=== PATIENT | female | born 2005 | race African-American/Black ===

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

== ENCOUNTER 2025-01-02 15:24 | Emergency (ER) | payer MEDICAID, SELFPAY ==
[~2025-01-02] VITALS: Ht 162.6 cm; Wt 51.9 kg
[~2025-01-02 15:24] MED LIST: NITR-87 PO; PERCOT PO
[2025-01-02 15:26] VITALS: BP 147/98; PULSE 117; RESP 16; TEMP 97.2; O2SAT 100
== END 2025-01-02 17:48 | disposition left against medical advice (07) ==
LOC: ER 15:24
DX: S01.411A Laceration without foreign body of right cheek and temporomandibular area, initial encounter (principal); Z53.21 Procedure and treatment not carried out due to patient leaving prior to being seen by health care provider; Y08.89XA Assault by other specified means, initial encounter; Y93.89 Activity, other specified; Y92.89 Other specified places as the place of occurrence of the external cause; Y99.8 Other external cause status

== ENCOUNTER 2025-03-08 17:17 | Emergency (ER) | payer SELFPAY ==
[~2025-03-08] VITALS: Ht 160 cm; Wt 53.2 kg
[2025-03-08 17:19] VITALS: BP 132/68; PULSE 90; RESP 20; TEMP 97.8; O2SAT 98
[2025-03-08 18:24] LABS: Hematocrit 39.3 % (36.0-46.0); Hemoglobin 13.3 g/dL (12.2-16.2); Mean Corpuscular Hemoglobin 29.3 pg (28.0-32.0); Mean Corpuscular Volume 86.5 fL (80.0-100.0); Nucleated Red Blood Cells % 0.1 %
--- NOTE | 2025-03-08 18:32 | ED.PDOC ---
GI ASSESSMENT HPI Comments 20 y/o F presents with c/c of LUQ and periumbilical abdominal pain since 03/04/25. Pain is sharp and intermittent. No previous history of pain in the past. Patient was referred to ED after going to and being evaluated at urgent care to r/o UTI. She states on testing negative for UTI. Denies being , currently. Denies any nausea, vomiting, fever, or further acute symptoms. Past medical history: denies Past surgical history: denies HPI: Poor Historian. Denies any nausea or vomiting or diarrhea. Denies any urinary symptoms. Denies any . Denies any history of STDs. Symptoms are intermittent nonspecific no particular alleviating or precipitating factors. TRICIA: LUQ UMBILICAL PAIN. NORMAL EXAM OTHERWISE. REVIEW OF SYSTEMS: CONSTITUTIONAL: Denies acute: fever, diaphoresis, chills, generalized weakness. HEAD: Denies acute: headache, photophobia Eyes: Denies acute: Double vision, vision loss, eye pain, eye discharge. EARS: Denies acute: tinnitus, hearing loss, ear discharge, ear pain, THROAT: Denies acute: sore throat, swelling, difficulty swallowing , pain with swallowing, change in voice. NECK: Denies acute: neck pain, neck swelling, stiff neck. HEART: Denies acute : chest pain, palpitations, LUNGS: Denies acute: SOB, wheezing, cough, hemoptysis ABDOMEN: Denies acute: Nausea, Vomiting, diarrhea, melena , hematemesis, hematochezia SKIN: Denies acute: rash, redness, lesions, itchiness. EXTREMITIES: Denies acute: calf pain, numbness, tingling, weakness, denies pain in extremity. Denies acute: Low back pain. Neuro: Denies acute: focal neurological deficit, motor or sensory focal neurological deficit, tremors, seizure like activity, confusion, dizziness, change in mental status, loss of bowel or bladder function, cauda equina like symptoms. : Denies acute: dysuria, hematuria, flank pain, increase in urinary frequency. PSYCH: Denies acute: hallucination, suicidal ideation, homicidal ideation. FEMALE: Denies acute: abnormal vaginal bleeding, foul odor, unusual discharge. PHYSICAL EXAM: General: ----no----acute distress, awake and alert. Head: normocephalic, atraumatic. No raccoon's eyes, no arellano sign. Neck: supple, trachea is midline, no swelling. Throat: Normal phonation. Eyes:, no erythema, no purulent discharge, no proptosis, no icterus. Heart: regular rate, regular rhythm, no significant murmur appreciated. Lungs: no apparent respiratory distress, Able to speak in full sentences. No wheezing, no rhonchi, no crackles. No stridors Clear to auscultation bilaterally. Abdomen: Left upper quadrant and umbilical tender to palpation, non distended, soft, no guarding, no rebound, + bowel sounds. Neuro: Awake, Alert, oriented to name, self, situation, follows commands GCS=15. Speech is normal. Skin: no petechia, no purpura, no cyanosis, non-pale, not jaundice. Lower extremities: --no - Pitting edema no deformity, no focal swelling, no calf TTP. Makes eye contact. moves all four extremities. Face: no apparent facial droop. Ambulating in the ED independently. ED COURSE: DISCLAIMER: This medical document was created using an electronic medical record system with voice recognition software and computerized dictation system. Although this document has been carefully reviewed, there might still be some phonetic and typographical errors. Occasional wrong-word or "sound-alike" substitutions may have occurred due to the inherent limitations of voice recognition software. These areas are purely typographical due to imperfections of the software programs and do not reflect any compromise in the patient's medical care. Please read the chart carefully and recognize, using context, where these substitutions have occurred. Chief Complaint: Abdominal Pain Time Seen by MD: 18:20 Reviewed Notes: Allergies Allergies: Coded Allergies: NO KNOWN ALLERGIES (Unverified , 11/07/22) Home Meds Active Scripts Oxycodone W/ Acetaminophen (Percocet 5/325MG) 1 Tab Tb, 1 TAB PO BID for 4 Days, #8 TAB Prov:RUTH HER MD 11/07/22 Nitrofurantoin Monohydrate Mac (Macrobid) 100 Mg Cap, 100 MG PO BID for 7 Days, #14 CAP Prov:RUTH HER MD 11/07/22 Information Source: Patient Mode of Arrival: Ambulatory Was a procedure done? Was a procedure done?: No GI differential Dx Differential Diagnosis: Other (DDX include Diverticulitis, colitis, gastroenteritis, acute abdomen, SBO, enteritis, constipation, volvulus, appendicitis, Gallbladder disease, choledocolithiasis, ascending cholangitis, pancreatitis, intraAbdominal mass/neoplasm, hepatitis, UTI, pylonephritis, kidney stone, aneurysm, dissection, Inflammatory bowel disease, gastroparesis, ischemic bowel,,,,,,Food poisoning, bacterial/parasitic/viral etiology, trauma, diabetes DKA,ovarian torsion, ovarian cyst/mass, tubo-ovarian abscess, , ectopic , PID, STD.) X-Ray, Labs, Meds, VS Vital Signs Date Time Temp Pulse Resp B/P (MAP) Pulse Ox O2 Delivery O2 Flow Rate FiO2 03/08/25 17:19 97.8 90 20 132/68 98 97.8 Lab Test 03/08/25 18:38 03/08/25 18:14 Range/Units Urine Color Yellow Yellow Urine Clarity Clear Clear Urine pH 6.0 5.0-9.0 Urine Specific Joaquin 1.031 1.001-1.035 Urine Protein Trace H Negative Urine Ketones Trace Negative Urine Blood 3+ H Negative /uL Urine Nitrite Negative Negative Urine Bilirubin Negative Negative Urine Urobilinogen Normal Negative mg/dL Urine Leukocyte Esterase Negative Negative /uL Urine RBC 289 0 - 4 /hpf Urine Microscopic WBC < 1 0-5 /HPF Urine Squamous Epithelial Cells Few <5 /hpf Urine Bacteria None seen None Seen /hpf Urine Hyaline Casts Few 0 - 2 /lpf Urine Mucus Moderate None Seen Urine Glucose Normal Normal mg/dL Urine Test Negative Negative White Blood Count 3.1 L 4.4-10.8 10^3/uL Red Blood Count 4.54 4.0-5.20 10^6/uL Hemoglobin 13.3 12.2-16.2 g/dL Hematocrit 39.3 36.0-46.0 % Mean Corpuscular Volume 86.5 80.0-100.0 fL Mean Corpuscular Hemoglobin 29.3 28.0-32.0 pg Mean Corpuscular Hemoglobin Concent 33.8 32.0-36.0 g/dL Red Cell Distribution Width 13.0 11.8-14.3 % Platelet Count 344 140-450 10^3/uL Mean Platelet Volume 7.5 6.9-10.8 fL Neutrophils (%) (Auto) 44.9 37.0-80.0 % Lymphocytes (%) (Auto) 42.6 10.0-50.0 % Monocytes (%) (Auto) 10.4 0.0-12.0 % Eosinophils (%) (Auto) 0.9 0.0-7.0 % Basophils (%) (Auto) 1.2 0.0-2.0 % Neutrophils # (Auto) 1.4 L 1.6-8.6 10 ^3/uL Lymphocytes # (Auto) 1.3 0.4-5.4 10 ^3/uL Monocytes # (Auto) 0.3 0-1.3 10 ^3/uL Eosinophils # (Auto) 0 0-0.8 10 ^3/uL Basophils # (Auto) 0 0-0.2 10 ^3/uL Nucleated Red Blood Cells 0.1 % Sodium Level 140 136-145 mmol/L Potassium Level 3.7 3.5-5.1 mmol/L Chloride Level 104 98-107 mmol/L Carbon Dioxide Level 26 20-31 mmol/L Anion Gap 10 5-15 Blood Urea Nitrogen 6 L 9-23 mg/dL Creatinine 0.73 0.550-1.02 mg/dL Glomerular Filtration Rate Calc 121 >90 mL/min BUN/Creatinine Ratio 8.2 L 10.0-20.0 Serum Glucose 90 74-106 mg/dL Lactic Acid Level 0.8 0.4-2.0 mmol/L Calcium Level 9.5 8.7-10.4 mg/dL Total Bilirubin 0.4 0.2-1.0 mg/dL Aspartate Amino Transferase (AST) 19 13-40 U/L Alanine Aminotransferase (ALT) 15 7-40 U/L Alkaline Phosphatase 73 46-116 U/L Total Protein 7.8 5.7-8.2 g/dL Albumin 4.3 3.2-4.8 g/dL Lipase 23 12-53 U/L [facility] [id number] [place] [id number] Ph: [phone] DIAGNOSTIC IMAGING Diagnostic Imaging Report : [id number] Signed PATIENT: PAVEL CLARKE ACCT: [id number] UNIT: [id number] : 2005 LOC: ER ROOM / BED: / AGE / SEX: 20 / F ADM STATUS: REG ER SERVICE [id number] ORDERING PHYSICIAN: JAYLA MCKENZIE DO PROCEDURE(s): ABPL - CT AB PEL WO CON-NO ORAL OR IV REASON: abd pain ORDER NUMBER(s): [id number], ACCESSION NUMBER(s): [id number] COMPUTERIZED TOMOGRAPHY ABDOMEN AND PELVIS WITHOUT CONTRAST REASON FOR EXAM: abd pain COMPARISON: CT CT AB PEL WO CON-NO ORAL OR IV on DOS: 11/07/22 TECHNIQUE: Spiral scans were acquired from the diaphragm to the symphysis pubis without intravenous contrast administration. 2-D coronal and sagittal reformatted images were provided. Radiation optimization: All CT scans at this facility use at least one of these dose optimization techniques: Automated exposure control mA and/or kV adjustment per patient size (includes targeted exams where dose is matched to clinical indication) or iterative reconstruction. RADIATION DOSE: CTDI: 6 mGy DLP: 268 mGy-cm FINDINGS: The visualized lung bases are clear. There is no pleural effusion. There is no pericardial effusion. The spleen is not enlarged. The liver is normal in size and contour. No calcified gallstone is identified. Evaluation of the abdominal organs is suboptimal in the absence of intravenous contrast. Unenhanced appearance of the pancreas is grossly unremarkable. The adrenal glands appear normal. The kidneys are similar in size. There is no hydronephrosis of either kidney. The urinary bladder is decompressed and is not well evaluated. No renal, ureteral, or bladde r calculus is identified. There is no abdominal aortic aneurysm. The stomach is distended with ingested material. There is no pathologic distention of the small bowel to suggest small bowel obstruction. The uterus and ovaries are grossly unremarkable. There is trace free fluid in the dependent pelvis, likely physiologic. The colonic stool burden is small. The appendix is not definitely seen. There is no pericecal inflammatory change to suggest acute appendicitis. No acute osseous abnormality is identified. IMPRESSION: The appendix is not definitely seen. There is no pericecal inflammatory change to suggest acute appendicitis. If there is clinical concern for acute appendicitis, recommend repeat CT with intravenous and enteric contrast. No evidence of bowel obstruction. Stomach is distended with ingested material. ATED BY: YEISON ROGERS MD DICTATED DATE/TIME: 03/08/252000 SIGNED BY: YEISON ROGERS MD SIGNED DATE/TIME: 03/08/252000 CC: Time of 1ST Reevaluation: 18:20 Reevaluation 1ST: Unchanged Patient Education/Counseling: Diagnosis, Treatment Family Education/Counseling: No Family Present Comments Patient eloped SEPSIS Sepsis Screen Date sepsis recognized/suspect: Mar 08, 2025 Time Sepsis recognized/suspect: 1719 Recent Procedure: No On Antibiotic Therapy: No Respiratory Rate >20: No Heart Rate >90: No Temp<36 C (96.8 F) or >38.3 C: No SBP <90 or MAP <65 mmHG: No New Acute Mental Status Change: No Is the patient on CPAP, BIPAP,: No 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 ) Ct Ab Pel Wo Con-No Oral Or Iv (03/08/25 18:05) Vital Signs Date Time Temp Pulse Resp B/P (MAP) Pulse Ox O2 Delivery O2 Flow Rate FiO2 03/08/25 17:19 97.8 90 20 132/68 98 97.8 Laboratory Tests Test 03/08/25 18:14 Lactic Acid Level 0.8 mmol/L (0.4-2.0) White Blood Count 3.1 10^3/uL (4.4-10.8) L Departure 1 Departure Time of Disposition: 20:23 Impression: Primary Impression: Abdominal pain Additional Impression: Eloped from emergency department Disposition: 07 LEFT AWOL/ELOPED Condition: Stable Additional Instructions: Patient eloped: Additional instructions: Please read all instructions provided in this packet carefully. You MUST follow-up with your primary care/family doctor in 1 to 2 days. If you are unable to see your primary care/family doctor, please return to our emergency room for re-assessment and re-evaluation in 1 to 2 days. Return to the emergency room here in our facility or to the nearest ER [facility] if your symptoms change or worsen. CONSULTATIONS: you MUST Follow-up for consultation as soon as possible with: -gastroenterology in 1-2 days. Please call for appointment. You MUST call the consultants office yourself to make an appointment. You may need to arrange that through your insurance and/or your primary/family doctor. If you are unable to see the presales consultant in 1 to 2 days, you must return to our emergency room (or any other ER of your choice) for re-assessment and re- evaluation. Adequate fluid hydration. Although you have been discharged from the Emergency Department, this does not mean that you have a "clean bill of health". No definitive diagnosis for your symptoms has been made today. It is possible that you are in the process of developing a serious illness. This is why you must return to the ED without fail if any new or worsening symptoms develop. Avoid fatty greasy spicy food. Avoid caffeinated products. Avoid NSAIDs. Below is a copy of your radiological report for follow up: [place] [address] Ph: [phone] DIAGNOSTIC IMAGING Diagnostic Imaging Report : [id number] Signed PATIENT: PAVEL CLARKE ACCT: [id number] UNIT: [id number] : 2005 LOC: ER ROOM / BED: / AGE / SEX: 20 / F ADM STATUS: REG ER SERVICE [id number] ORDERING PHYSICIAN: JAYLA MCKENZIE DO PROCEDURE(s): ABPL - CT AB PEL WO CON-NO ORAL OR IV REASON: abd pain ORDER NUMBER(s): [id number], ACCESSION NUMBER(s): [id number] COMPUTERIZED TOMOGRAPHY ABDOMEN AND PELVIS WITHOUT CONTRAST REASON FOR EXAM: abd pain COMPARISON: CT CT AB PEL WO CON-NO ORAL OR IV on DOS: 11/07/22 TECHNIQUE: Spiral scans were acquired from the diaphragm to the symphysis pubis without intravenous contrast administration. 2-D coronal and sagittal re formatted images were provided. Radiation optimization: All CT scans at this facility use at least one of these dose optimization techniques: Automated exposure control mA and/or kV adjustment per patient size (includes targeted exams where dose is matched to clinical indication) or iterative reconstruction. RADIATION DOSE: CTDI: 6 mGy DLP: 268 mGy-cm FINDINGS: The visualized lung bases are clear. There is no pleural effusion. There is no pericardial effusion. The spleen is not enlarged. The liver is normal in size and contour. No calcified gallstone is identified. Evaluation of the abdominal organs is suboptimal in the absence of intravenous contrast. Unenhanced appearance of the pancreas is grossly unremarkable. The adrenal glands appear normal. The kidneys are similar in size. There is no hydronephrosis of either kidney. The urinary bladder is decompressed and is not well evaluated. No renal, ureteral, or bladder calculus is identified. There is no abdominal aortic aneurysm. The stomach is distended with ingested material. There is no pathologic distention of the small bowel to suggest small bowel obstruction. The uterus and ovaries are grossly unremarkable. There is trace free fluid in the dependent pelvis, likely physiologic. The colonic stool burden is small. The appendix is not definitely seen. There is no pericecal inflammatory change to suggest acute appendicitis. No acute osseous abnormality is identified. IMPRESSION: The appendix is not definitely seen. There is no pericecal inflammatory change to suggest acute appendicitis. If there is clinical concern for acute appendicitis, recommend repeat CT with intravenous and enteric contrast. No evidence of bowel obstruction. Stomach is distended with ingested material. ATED BY: YEISON ROGERS MD DICTATED DATE/TIME: 03/08/252000 SIGNED BY: YEISON ROGERS MD SIGNED DATE/TIME: 03/08/252000 CC: Discharged With: Self Critical Care Note Critical Care Time?: No I personally scribed for JAYLA MCKENZIE DO ([email or web address]) on 03/08/25 at 18:32. Electronically submitted by Osiel Che ([email or web address]). I personally scribed for JAYLA MCKENZIE DO ([email or web address]) on 03/08/25 at 22:17. Electronically submitted by Osiel Che ([email or web address]). I personally scribed for JAYLA MCKENZIE DO ([email or web address]) on 03/09/25 at 01:25. Electronically submitted by Osiel Che ([email or web address]). JAYLA MCKENZIE DO Mar 08, 2025 18:32
[2025-03-08 18:39] LABS: Alanine Aminotransferase 15 U/L (7-40); Albumin 4.3 g/dL (3.2-4.8); Alkaline Phosphatase 73 U/L (46-116); Anion Gap 10 (5-15); BUN/Creatinine Ratio 8.2 (10.0-20.0); Calcium 9.5 mg/dL (8.7-10.4); Carbon Dioxide 26 mmol/L (20-31); Chloride 104 mmol/L (98-107); Glucose 90 mg/dL (74-106); Lipase 23 U/L (12-53); Potassium 3.7 mmol/L (3.5-5.1); Sodium 140 mmol/L (136-145); Total Protein 7.8 g/dL (5.7-8.2)
[2025-03-08 18:40] LABS: Bilirubin, Total 0.4 mg/dL (0.2-1.0)
[2025-03-08 18:44] LABS: Blood Urea Nitrogen 6 mg/dL (9-23)
[2025-03-08 19:09] LABS: Urine Protein, UAD TRACE (Negative)
--- NOTE | 2025-03-08 20:04 | DVH ---
COMPUTERIZED TOMOGRAPHY ABDOMEN AND PELVIS WITHOUT CONTRAST REASON FOR EXAM: abd pain COMPARISON: CT CT AB PEL WO CON-NO ORAL OR IV on DOS: 11/07/22 TECHNIQUE: Spiral scans were acquired from the diaphragm to the symphysis pubis without intravenous contrast administration. 2-D coronal and sagittal reformatted images were provided. Radiation optimization: All CT scans at this facility use at least one of these dose optimization techniques: Automated exposure control mA and/or kV adjustment per patient size (includes targeted exams where dose is matched to clinical indication) or iterative reconstruction. RADIATION DOSE: CTDI: 6 mGy DLP: 268 mGy-cm FINDINGS: The visualized lung bases are clear. There is no pleural effusion. There is no pericardial effusion. The spleen is not enlarged. The liver is normal in size and contour. No calcified gallstone is identified. Evaluation of the abdominal organs is suboptimal in the absence of intravenous contrast. Unenhanced appearance of the pancreas is grossly unremarkable. The adrenal glands appear normal. The kidneys are similar in size. There is no hydronephrosis of either kidney. The urinary bladder is decompressed and is not well evaluated. No renal, ureteral, or bladder calculus is identified. There is no abdominal aortic aneurysm. The stomach is distended with ingested material. There is no pathologic distention of the small bowel to suggest small bowel obstruction. The uterus and ovaries are grossly unremarkable. There is trace free fluid in the dependent pelvis, likely physiologic. The colonic stool burden is small. The appendix is not definitely seen. There is no pericecal inflammatory change to suggest acute appendicitis. No acute osseous abnormality is identified. IMPRESSION: The appendix is not definitely seen. There is no pericecal inflammatory change to suggest acute appendicitis. If there is clinical concern for acute appendicitis, recommend repeat CT with intravenous and enteric contrast. No evidence of bowel obstruction. Stomach is distended with ingested material.
== END 2025-03-08 23:46 | disposition left against medical advice (07) ==
LOC: ER 17:17
DX: R10.12 Left upper quadrant pain (principal); R10.33 Periumbilical pain
CPT/HCPCS: 36415; 74176; 80053; 81001; 81025; 83605; 83690; 85025